=== PATIENT | female | born 1940 | race Two or more races ===

== ENCOUNTER 2020-03-21 09:40 | Emergency (ER) | payer OTHER ==
[~2020-03-21] VITALS: Ht 160 cm; Wt 78.9 kg
[~2020-03-21 09:40] MED LIST: CATAFLAM50 MG PO; MEDROL DOSE PACK; ROBAXIN PO; ROBAXIN-750750 MG PO
== END 2020-03-21 14:59 | disposition home or self-care (01) ==
LOC: ER 09:40
DX: N39.0 Urinary tract infection, site not specified (principal); R10.2 Pelvic and perineal pain

== ENCOUNTER → 2020-04-06 09:00 | Outpatient (CLI) | payer OTHER | END | disposition home or self-care (01) | LOC: LAB 09:00 | PROVIDERS: ATTEND Specialist | DX: D64.89 Other specified anemias (principal); Z12.11 Encounter for screening for malignant neoplasm of colon; E03.8 Other specified hypothyroidism; N95.1 Menopausal and female climacteric states; I10 Essential (primary) hypertension; C51.8 Malignant neoplasm of overlapping sites of vulva; N30.00 Acute cystitis without hematuria; E83.51 Hypocalcemia; A64 Unspecified sexually transmitted disease; R97.8 Other abnormal tumor markers; R79.89 Other specified abnormal findings of blood chemistry ==

== ENCOUNTER 2020-04-06 13:47 | Outpatient (CLI) | payer OTHER | END 2020-04-06 13:56 | disposition home or self-care (01) | LOC: MAMO-SONO 13:47 | PROVIDERS: ATTEND Specialist | DX: Z12.31 Encounter for screening mammogram for malignant neoplasm of breast (principal); Z87.898 Personal history of other specified conditions; N60.11 Diffuse cystic mastopathy of right breast; N60.12 Diffuse cystic mastopathy of left breast ==

== ENCOUNTER 2020-04-06 14:34 | Outpatient (CLI) | payer OTHER | END 2020-04-06 15:11 | disposition home or self-care (01) | LOC: NUCLEAR 14:34 | PROVIDERS: ATTEND Specialist | DX: M81.0 Age-related osteoporosis without current pathological fracture (principal) ==

== ENCOUNTER 2020-10-05 18:10 | Emergency (ER) | payer OTHER ==
[~2020-10-05] VITALS: Ht 167.6 cm; Wt 81.6 kg
== END 2020-10-05 23:30 | disposition home or self-care (01) ==
LOC: ER 18:10
DX: S00.83XA Contusion of other part of head, initial encounter (principal); S80.01XA Contusion of right knee, initial encounter; S50.01XA Contusion of right elbow, initial encounter; M54.5 Low back pain; M12.561 Traumatic arthropathy, right knee; M51.37 Other intervertebral disc degeneration, lumbosacral region; W01.198A Fall on same level from slipping, tripping and stumbling with subsequent striking against other object, initial encounter; Y93.89 Activity, other specified; Y92.018 Other place in single-family (private) house as the place of occurrence of the external cause; Y99.8 Other external cause status

== ENCOUNTER 2021-06-30 10:18 | Emergency (ER) | payer OTHER ==
[~2021-06-30] VITALS: Ht 154.9 cm; Wt 60.8 kg
[2021-06-30] MEDS ORDERED: ORPHENADRINE C100 MG PO (13:15)
[2021-06-30] MEDS ORDERED: DICLOFENAC POTA50 MG PO (13:15)
== END 2021-06-30 14:41 | disposition home or self-care (01) ==
LOC: ER 10:18
DX: G89.11 Acute pain due to trauma (principal); M25.552 Pain in left hip; S73.192S Other sprain of left hip, sequela; X50.0XXS Overexertion from strenuous movement or load, sequela

== ENCOUNTER → 2022-06-05 | Emergency (ER) | payer OTHER ==
[~2022-06-05] VITALS: Ht 160 cm; Wt 64.4 kg
[~2022-06-05] MED LIST changes: +DICLOFENAC POTA50 MG PO; +LEVOFLOXACIN750 MG PO; +MEDROLPACK PO; +ORPHENADRINE C100 MG PO; +TUSNEL LIQUID178 ML PO; +XOPENEX0.63 MG/3 IH
== END | disposition home or self-care (01) ==
LOC: ER 21:33
DX: J18.9 Pneumonia, unspecified organism (principal); R06.02 Shortness of breath; R53.81 Other malaise; Z88.1 Allergy status to other antibiotic agents; Z88.8 Allergy status to other drugs, medicaments and biological substances; Z88.0 Allergy status to penicillin; Z20.822 Contact with and (suspected) exposure to COVID-19

== ENCOUNTER → 2022-10-17 07:25 | Outpatient (CLI) | payer OTHER | END | disposition home or self-care (01) | LOC: LAB 07:25 | DX: I10 Essential (primary) hypertension (principal); E11.9 Type 2 diabetes mellitus without complications; E03.9 Hypothyroidism, unspecified; E78.5 Hyperlipidemia, unspecified; N39.0 Urinary tract infection, site not specified; E55.9 Vitamin D deficiency, unspecified; D51.9 Vitamin B12 deficiency anemia, unspecified; R19.5 Other fecal abnormalities ==

== ENCOUNTER 2025-06-23 12:34 | Emergency (ER) | payer OTHER ==
[~2025-06-23] VITALS: Ht 165.1 cm; Wt 63.5 kg
[2025-06-23] MEDS ORDERED: DEXAMETHASONE SODIUM PHOSPHATE 4 MG/ML VIAL IM STA (13:53)
[2025-06-23] MEDS ORDERED: ACETAMINOPHEN 500 MG GEL..CAP PO STA (13:54)
[2025-06-23] MEDS ORDERED: DEXAMETHASONE SODIUM PHOSPHATE 4 MG/ML VIAL ONE (14:36)
[2025-06-23] MEDS ORDERED: ACETAMINOPHEN 500 MG GEL..CAP PO ONE (14:36)
[2025-06-23] MEDS ORDERED: TRAM1TAB98 PO (16:12)
== END 2025-06-23 16:21 | disposition home or self-care (01) ==
LOC: ER 12:34
DX: S42.212A Unspecified displaced fracture of surgical neck of left humerus, initial encounter for closed fracture (principal); W18.39XA Other fall on same level, initial encounter; Y93.89 Activity, other specified; Y92.89 Other specified places as the place of occurrence of the external cause; Z88.0 Allergy status to penicillin; Z88.2 Allergy status to sulfonamides; M19.90 Unspecified osteoarthritis, unspecified site; M81.8 Other osteoporosis without current pathological fracture; H81.10 Benign paroxysmal vertigo, unspecified ear
CPT/HCPCS: 73030; 73070; 73110; 73130; 73503; 96372; 99283; J1100

== ENCOUNTER 2025-06-25 12:53 | Outpatient (CLI) | payer OTHER ==
[~2025-06-25 12:53] MED LIST changes: +TRAM1TAB98 PO
== END 2025-06-25 13:12 | disposition home or self-care (01) ==
LOC: TOM 12:53 → MRI 12:53
PROVIDERS: ATTEND Orthopaedic Surgery
DX: M25.552 Pain in left hip (principal)
CPT/HCPCS: 73721